=== PATIENT | female | born 1985 | race American Indian/Alaskan Native ===

== ENCOUNTER 2017-05-11 18:15 | Inpatient (IN) | payer OTHER ==
[2017-05-11 18:58] VITALS: BMI 32.4
[2017-05-11] MEDS ORDERED: Oxytocin 30 UNITS in Sodium Chloride 0.9% 500 ML IV SCH (19:45)
[2017-05-11 20:40] LABS: BASO # 0.1 K/uL (0.0-0.2); BASO % 0.6 % (0.0-2.0); EOS % 0.1 % (0.0-4.0); HEMATOCRIT 34.4 % (34.0-47.0); LYMPH # 1.6 K/uL (1.0-4.3); LYMPH % 11.8 % (20.0-40.0); MEAN CELL VOLUME 93.8 fl (81.0-99.0); MEAN CORPUSCULAR HEMOGLOBIN 32.1 pg (27.0-31.0); MEAN CORPUSCULAR HGB CONC 34.3 g/dL (33.0-37.0); MEAN PLATELET VOLUME 7.7 fl (7.2-11.7); MONO # 0.8 K/uL (0.0-0.8); MONO % 6.3 % (0.0-10.0); NEUT # 10.8 K/uL (1.8-7.0); NEUT % 81.2 % (50.0-75.0); NRBC % 0.1 % (0.0-0.0); RED CELL DISTRIBUTION WIDTH 13.2 % (11.5-14.5); WHITE BLOOD COUNT 13.2 K/uL (4.8-10.8)
[2017-05-11] MEDS: Lactated Ringer's 1,000 ML IV SCH ×3 (21:00→23:00)
[2017-05-11] MEDS ORDERED: Fentanyl/Bupivacaine HCl 250 ML EPI ONE (22:16)
--- NOTE | 2017-05-12 00:45 | OBPN ---
Datetime: 05/12/2017 00:42 IP Progress Impression: Normal progression of labor IP Procedures: Sterile Vag Exam IP Progress Plan: Continue present management Contraction Comments Provider: q2-3min FHR - Baseline A Provider: 120s IP Progress Note Comment: Labor progressing well. Maternal well-being is reassuring at this time. Co ntinue current management. Vital Signs Provider: Reviewed; Within Normal Limits NICHD Accel Fetus A IP Provider: 15X15 FHR Category Provider Fetus A: Category I NICHD Variability Prov Fetus A: Moderate 6-25bpm Dilatation, Provider: 9 Effacement, Provider: 100 Station, Provider: 0 NICHD Decel Fetus A IP Provider: None
[2017-05-12] MEDS ORDERED: Lidocaine 1% Inj (20ml) ONE (03:14)
[2017-05-12] MEDS ORDERED: Oxycodone/Acetaminophen 5/325 mg Tab PO PRN ×4 (04:28→06:56)
[2017-05-12] MEDS: Lactated Ringer's 1,000 ML IV SCH (05:00)
--- NOTE | 2017-05-12 08:06 | OBADHP ---
Datetime: 05/12/2017 00:42 FHR - Baseline A Provider: 120s Contraction Comments Provider: q2-3min Vital Signs Provider: Reviewed; Within Normal Limits NICHD Variability Prov Fetus A: Moderate 6-25bpm NICHD Accel Fetus A IP Provider: 15X15 FHR Category Provider Fetus A: Category I NICHD Decel Fetus A IP Provider: None Dilatation, Provider: 9 Effacement, Provider: 100 Station, Provider: 0 Datetime: 05/11/2017 19:48 Admit Comment, IP Provider: 31 y/o female, , IUP@38.4 comes to the [facility] c/o pain and CTX. no LOF , good movements, denies any bleeding. patient admits nausea but denies any cp, sob, dysuria or urianry symptoms. PNC: [facility] PNI/PNL: GBS negative , HIV and RPR nega PMH: Asthma (inhaller use a week) PMS: Denies Meds: PNV Allg: NKDA SH: Denies alcohol, smoking or drug use (former smoker) FH: DM ROS: as per HPI VS: 128/77 FHR: 150 PE: gravid abdo cervix 5/100/0 A/P: 31 y/o female, , IUP@38.4 comes to the [facility] c/o pain and CTX. - Admit patient to L_D - Monitor VS/FHT/NST Case discussed and patient seen by Dr. Shipley --- Gilmar Ace, PGY-1 Pelvic Type - PN: Adequate Extremities - PN: Normal Abdomen - PN: Normal Back - PN: Normal Breast - PN: Not Done Lungs - PN: Normal Heart - PN: Normal Thyroid - PN: Normal Neurologic - PN: Normal HEENT - PN: Normal General - PN: Normal IP Chief Complaint: Uterine contractions; Maternal discomfort; evaluation Genitourinary Exam: Normal DTRs - PN: Normal EGA AdmitDate IP: 38.4 IP Adm Impression: Term, intrauterine IP Admit Plan: Admit to unit; Initiate labor protocol; Observation/Evaluation
--- NOTE | 2017-05-12 08:09 | OBDS ---
DELIVERY PERSONNEL Delivery Doctor: Alexander Shipley MD (Annotations: Data stored by [facility] on behalf of user) Terminal Gauger: Oralia Infante RN Anesthesiologist: Ana Zhong MD MATERNAL INFORMATION Delivery Anesthesia: Local; Epidural Medications in Delivery: Pitocin Estimated Blood Loss (ml): 300 Placenta Cultured: No Maternal Complications: None Provider Comments: Normal spontaneous vaginal delivery. Viable male with Apgars of 9 and 9 at one and 5 minutes respectively. Nuchal cord 2 reduced. Placenta delivered spontaneously. Lacerati on repair, as above. Patient tolerated delivery and repair well. Uterus firm and appropriately hemost atic following delivery. medications. Estimated blood loss 300 mL. LABOR SUMMARY EDC: 05/21/2017 00:00 No. Babies in Womb: 1 Attempted: No Labor Anesthesia: Epidural LABOR INFORMATION Reason for Induction: Not Applicable Onset of Labor: 05/11/2017 12:30 Complete Dilatation: 05/12/2017 01:40 Group B Beta Strep: Negative Antibiotics # of Doses: 0 Antibiotics Time of Last Dose: n/a Steroids Given: None Reason Steroids Not Administered: Not Applicable MEMBRANES Membranes Rupture Method: Artificial Rupture of Membranes: 05/11/2017 23:15 Length of Rupture (hrs): 3.78 Amniotic Fluid Color: Clear Amniotic Fluid Amount: Moderate Amniotic Fluid Odor: Normal STAGES OF LABOR Stage 1 hrs: 13 Stage 1 min: 10 Stage 2 hrs: 1 Stage 2 min: 22 Stage 3 hrs: 0 Stage 3 min: 3 Total Time in Labor hrs: 14 Total Time in Labor min: 35 VAGINAL DELIVERY Episiotomy: None Laceration Extension: First Degree Laceration Type: Vaginal Laceration Repair: Not Applicable Laceration Repair Note: First degree bilateral vaginal lacerations. Area was infiltrated with 1% lid ocaine. Lacerations repaired with 2. 0 repeat without complication. The patient tolerated repair well . Initial Vag Sponge Count: 15 Final Vag Sponge Count: 15 Initial Vag Sharps Count: 4 Final Vag Sharps Count: 4 Sponge Count Correct: Yes Sharps Count Correct: Yes Count Comment: count correct BABY A INFORMATION Infant Delivery Date/Time: 05/12/2017 03:02 Method of Delivery: Vaginal Born in Route : No : N/A Forceps: Outlet Vacuum Extraction: N/A Shoulder Dystocia : No SHOULDER DYSTOCIA BABY A Infant Delivery Date/Time: 05/12/2017 03:02 PRESENTATION/POSITION BABY A Presentation: Cephalic Cephalic Presentation: Vertex Vertex Position: Left Occipital Anterior PLACENTA INFORMATION BABY A Placenta Delivery Time : 05/12/2017 03:05 Placenta Method of Delivery: Spontaneous Placenta Status: Delivered SCORES BABY A Heart Rate 1 min: >100 bpm Resp Effort 1 min: Slow, Irregular Reflex Irritability 1 min: Cough or Sneeze or Pulls Away Muscle Tone 1 min: Active Motion Color 1 min: Body [place], Extremities Blue Resuscitation Effort 1 min: Tactile Stimulation SCORE 1 MIN: 8 Heart Rate 5 min: >100 bpm Resp Effort 5 min: Good [place] Reflex Irritability 5 min: Cough or Sneeze or Pulls Away Muscle Tone 5 min: Active Motion Color 5 min: Body [place], Extremities Blue Resuscitation Effort 5 min: N/A SCORE 5 MIN: 9 INFORMATION BABY A Gestational Age at Delivery: 38.5 Gestational Status: Term Infant Outcome : Liveborn Condition : Stable Infant Sex: Male IDENTIFICATION/MEDS BABY A ID Band Number: [id number] ID Band Location: Left Leg; Left Arm WEIGHT/LENGTH BABY A Infant Birthweight (gms): 3280 Infant Weight (lb): 7 Weight (oz): 4 CORD INFORMATION BABY A No. Cord Vessels: 3 Nuchal Cord : Around Neck x2, Loose Nuchal Cord Other: n/a True Knot: n/a Infant Cord pH Baby Arterial: n/a Infant Cord pH Baby Venous: n/a Cord Blood Taken: Yes Banking/Donate Info: n/a Suction: Mouth; Nose ASSESSMENT BABY A Complications: Multiple Variable Decels Physical Findings at Delivery: Caput [place]aneum Infant Respirations: Appears Normal Wagon Person/ALS Called : No Care By: Cecile Transferred To: Remains with Mother
[2017-05-13 07:12] LABS: BASO % 0.2 % (0.0-2.0); EOS # 0.1 K/uL (0.0-0.7); EOS % 0.5 % (0.0-4.0); HEMATOCRIT 29.9 % (34.0-47.0); LYMPH % 12.5 % (20.0-40.0); MEAN CELL VOLUME 95.5 fl (81.0-99.0); MEAN CORPUSCULAR HEMOGLOBIN 32.1 pg (27.0-31.0); MEAN CORPUSCULAR HGB CONC 33.7 g/dL (33.0-37.0); MEAN PLATELET VOLUME 7.6 fl (7.2-11.7); MONO # 1.2 K/uL (0.0-0.8); MONO % 7.3 % (0.0-10.0); NEUT # 12.7 K/uL (1.8-7.0); NEUT % 79.5 % (50.0-75.0); RED CELL DISTRIBUTION WIDTH 13.6 % (11.5-14.5)
--- NOTE | 2017-05-13 09:42 | OBPPN ---
Datetime: 05/13/2017 07:24 PP Pain Prov: Within normal limits PP Nausea Prov: Denies PP Flatus Prov: Yes PP BM Prov: No PP Heart Prov: Normal PP Lungs Prov: Normal PP Abdomen/Uterus Prov: Normal PP Lochia Prov: Normal PP CVA Tenderness Prov: Normal PP Extremities Prov: Normal PP Impression Prov: Normal progression PP Plan Prov: Continue present management PP Progress Note Prov: PPD #1 31 y/o now seen and examined at bedside this morning.. Pt had an uneventful overnight. Repor ts pain is controlled with pain medications. Voiding freely w/o blood noted.Pt reports passing gas pe r rectum but no BM yet. Ambulating well w/o dizziness. Lochia is similar to menses volume. Pt is anna stfeeding/bottle feeding w/o difficulty. Denies nausea, vomiting, fever, chills, chest pain or calf p ain. Physical Exam: General: A_O, resting comfortably in bed, NAD HEENT: oral mucosa moist. Lungs: CTA B/L, no wheezing, rhonchi or rales CVS: RRR, S1, S2 ABD: ND, +BS, firm fundus @ umbilical level. Soft, appropriate TTP. EXT: no edema, negative Maury's sign, Neuro/psych: AAOX3. assessment: 31 y/o now doing well on PDD 1 Plan: OOB w/ caution Regular diet Percocet and Ibuprofen for pain management Encourage and ambulatory Anticipate discharge tomorrow Sultan Stark, PGY1 OB Hospitalist on-call : On rounds this morning, I saw and examined this patient. Agree with note . EILEEN Vital Signs Provider PP: Reviewed; Within Normal Limits
--- NOTE | 2017-05-14 08:54 | OBPPN ---
Datetime: 05/14/2017 08:51 PP Nausea Prov: Denies PP Abdomen/Uterus Prov: Normal PP Lochia Prov: Normal PP Extremities Prov: Normal PP Progress Prov: Normal PP Impression Prov: Normal progression PP Plan Prov: Discharge PP Progress Note Prov: PPD 2 s/p , doing well, breast and bottle feeding Rx's motrin, ferrous sulfate and Dermaplast given Discharge home today Vital Signs Provider PP: Reviewed
--- NOTE | 2017-05-14 08:56 | OBDCSUM ---
Datetime: 05/14/2017 08:54 Discharged to, Provider: Home Follow up at, Provider: Dr. Smith Disch Instr Activity: Normal activity; May Shower Disch Instr Diet: Regular Discharge Instructions, Provider: Routine instructions given Discharge Diagnosis, Provider: Term Delivered Discharge Time: 05/14/2017 08:54 Follow up in weeks, Provider: 6 weeks Contraception discussed, Prov: No Disch Activity Restrictions: No exercising; No lifting; No sexual activity; Nothing in vagina - Inte rcourse, tampons, douche
[2017-05-14] MEDS ORDERED: Benzocaine/Menthol SPRAY TOP PRN (08:57)
[2017-05-14 21:56] VITALS: BP 125/78; PULSE 94; RESP 20; TEMP 98.3; O2SAT 100
== END 2017-05-14 14:00 | disposition home or self-care (01) | DRG 775 ==
LOC: H.EROB2 18:15 → H.EROB 19:01 → H.L&D 19:31 → H.EROB2 19:31 → H.OB/GYN 05-12 12:50
PROVIDERS: ADMIT Obstetrics & Gynecology; ATTEND Obstetrics & Gynecology
PROC: 0HQ9XZZ Repair Perineum Skin, External Approach (ICD-10-PCS; principal; 2017-05-11)
PROC: 10E0XZZ Delivery of Products of Conception, External Approach (ICD-10-PCS; 2017-05-11)
PROC: 4A1HXCZ Monitoring of Products of Conception, Cardiac Rate, External Approach (ICD-10-PCS; 2017-05-11)
DX: O76 Abnormality in fetal heart rate and rhythm complicating labor and delivery (principal); J45.909 Unspecified asthma, uncomplicated; O70.0 First degree perineal laceration during delivery; Z37.0 Single live birth; O99.52 Diseases of the respiratory system complicating childbirth; O69.81X0 Labor and delivery complicated by cord around neck, without compression, not applicable or unspecified; Z3A.38 38 weeks gestation of pregnancy